=== PATIENT | female | born 1960 | race Caucasian/White ===

== ENCOUNTER → 2020-06-13 | Outpatient (CLI) | payer BC ==
--- NOTE | 2020-06-13 16:13 | RAD ---
Examination: FOOT LEFT 2V History: Reason: LEFT FOOT PAIN, NO INJURY / Spl. Instructions: / History: Comparison/Correlation: 08/15/2014 bilateral foot x-ray exam Findings: AP and lateral views of the left foot were obtained. Joint spaces are unremarkable. No fracture or bone destruction. Calcific density is again seen along the lateral cuboid region on the lateral view. Impression: No suspicious process. No significant change. No significant degenerative findings with the patient's age. Electronically signed by: Obie Batista MD (06/13/2020 4:10 PM) [id number]
== END | disposition home or self-care (01) ==
LOC: RAD 15:11
PROVIDERS: ATTEND Physician Assistant
DX: M79.672 Pain in left foot (principal)
CPT/HCPCS: 73620